=== PATIENT | female | born 1980 | race Caucasian/White ===

== ENCOUNTER → 2017-01-08 | Outpatient (CLI) | payer OTHER, SELFPAY ==
[~2017-01-08] MED LIST: IBUPROFEN600 MG PO; NORCO 10-325 T1 EACH PO; STOOL SOFTENER100 MG PO
== END ==
LOC: RAD 13:24
DX: R06.02 Shortness of breath (principal); R91.8 Other nonspecific abnormal finding of lung field; Z88.0 Allergy status to penicillin; Z88.1 Allergy status to other antibiotic agents
CPT/HCPCS: 71020

== ENCOUNTER → 2017-01-18 | Outpatient (CLI) | payer OTHER, SELFPAY | LOC: HEART CORB 12:59 | DX: C82.84 Other types of follicular lymphoma, lymph nodes of axilla and upper limb (principal) ==

== ENCOUNTER → 2017-01-18 | Outpatient (CLI) | payer OTHER, SELFPAY ==
[2017-01-18 12:12] LABS: HEMOGLOBIN 9.8 gm/dl (12.3-15.3); RED BLOOD COUNT 3.68 M/UL (4.00-5.10); WHITE BLOOD COUNT 4.1 K/UL (4.5-11.0)
== END ==
LOC: LAB 11:35
PROVIDERS: Nurse Practitioner Family
DX: R07.2 Precordial pain (principal); R94.31 Abnormal electrocardiogram [ECG] [EKG]
CPT/HCPCS: 36415; 85025; 85610

== ENCOUNTER → 2017-01-19 | Outpatient (CLI) | payer OTHER, SELFPAY | LOC: US 10:00 | DX: C82.84 Other types of follicular lymphoma, lymph nodes of axilla and upper limb (principal) | CPT/HCPCS: 76881; 76942 ==

== ENCOUNTER → 2017-01-27 | Outpatient (CLI) | payer OTHER, SELFPAY | LOC: HEART 5 08:30 | DX: R01.1 Cardiac murmur, unspecified (principal) | CPT/HCPCS: 93306 ==

== ENCOUNTER → 2017-01-28 | Outpatient (CLI) | payer OTHER, SELFPAY | LOC: CT 01-27 08:00 | DX: D50.9 Iron deficiency anemia, unspecified (principal); K90.9 Intestinal malabsorption, unspecified; R59.0 Localized enlarged lymph nodes; R63.4 Abnormal weight loss; R06.02 Shortness of breath | CPT/HCPCS: 71260; 74160; J7050; Q9962 ==

== ENCOUNTER → 2020-11-27 | Outpatient (CLI) | payer OTHER ==
[~2020-11-27] MED LIST changes: +ASPIR 8181 MG PO; +COLACE 100MG C100 MG PO; +DEPO-PROVE150 MG/11 IM; +FERROUS SULFAT325 MG PO; +LOVENOX SY60 MG/0.6 SQ; +NORCO 5-325 TA1 EACH PO; +VIT B12 SC; +ZANTAC150 MG PO
[2020-11-27 10:56] LABS: HEMOGLOBIN 12.8 gm/dl (12.3-15.3); RED BLOOD COUNT 4.34 M/UL (4.00-5.10); WHITE BLOOD COUNT 3.6 K/UL (4.5-11.0)
[2020-11-27 11:23] LABS: BUN/CREATININE RATIO 19 (0-10)
== END ==
LOC: LAB 10:28
PROVIDERS: Internal Medicine
DX: D89.89 Other specified disorders involving the immune mechanism, not elsewhere classified (principal); M25.50 Pain in unspecified joint; R76.8 Other specified abnormal immunological findings in serum; D50.9 Iron deficiency anemia, unspecified; M32.9 Systemic lupus erythematosus, unspecified
CPT/HCPCS: 36415; 80053; 81001; 82570; 82728; 84156; 85025

== ENCOUNTER → 2021-06-27 | Outpatient (CLI) | payer OTHER | LOC: MAMO 14:00 | DX: N63.0 Unspecified lump in unspecified breast (principal); N60.02 Solitary cyst of left breast | CPT/HCPCS: 76641-LT; 77066; G0279 ==

== ENCOUNTER → 2022-06-04 | Outpatient (CLI) | payer OTHER | LOC: HEART CORB 11:30 | DX: R07.2 Precordial pain (principal) ==